=== PATIENT | male | born 1975 | race Caucasian/White ===

== ENCOUNTER → 2023-10-12 | Outpatient (CLI) | payer BC, OTHER ==
[2023-10-14 13:37] LABS: LDL DIRECT 62 mg/dL (<100)
== END ==
LOC: M WUC 09:04
PROVIDERS: ATTEND Physician Assistant Medical
DX: Z00.00 Encounter for general adult medical examination without abnormal findings (principal); R06.02 Shortness of breath; E78.1 Pure hyperglyceridemia